=== PATIENT | female | born 1940 | race Caucasian/White ===

== ENCOUNTER → 2021-04-09 | Outpatient (CLI) | payer OTHER ==
[~2021-04-09] MED LIST: AMARYL 2MG TABLE2 MG PO; AMLOD-VALSA-HC1 EACH PO; ASPIRIN81 MG PO; CALCIUM600 MG PO; CO Q-10100 MG PO; GLUCOPHAGE 500500 MG PO; GLUCOSAMINE1000 MG PO; ICAPS MV TABLE1 EACH PO; LANTUS100 UNIT/1 SQ; LOVASTATIN10 MG PO; MAGNESIUM27 MG PO; MONTELUKAST SOD10 MG PO; NAPROXEN 375 M375 MG PO; TRICOR 145 MG145 MG PO; VITAMIN D 11000 UNIT PO; ZETIA 10 MG TAB10 MG PO
== END ==
LOC: KOH-I 10:00
DX: R09.1 Pleurisy (principal); R91.8 Other nonspecific abnormal finding of lung field
CPT/HCPCS: 71250

== ENCOUNTER 2021-05-05 08:56 | Inpatient (IN) | payer OTHER ==
[~2021-05-05] VITALS: Ht 175.3 cm; Wt 83.5 kg
[2021-05-05 09:33] LABS: HEMOGLOBIN 13.4 gm/dl (12.3-15.3); RED BLOOD COUNT 4.39 M/UL (4.00-5.10)
[2021-05-05 09:58] LABS: BUN/CREATININE RATIO 27 (0-10)
[2021-05-05] MEDS ORDERED: ROXICODONE TAB 55 MG PO ×2 (12:51→13:01)
[2021-05-05] MEDS ORDERED: LOSARTAN POTASS50 MG PO (17:26)
[2021-05-05] MEDS ORDERED: CYCLOBENZAPRINE10 MG PO (17:26)
[2021-05-05] MEDS ORDERED: PIOGLITAZONE HC30 MG PO (17:27)
[2021-05-05] MEDS ORDERED: CRESTOR20 MG PO (17:27)
[2021-05-05] MEDS ORDERED: OXYBUTYNIN CHLOR5 MG PO (17:27)
[2021-05-05] MEDS ORDERED: PROTONIX40 MG PO (17:28)
[2021-05-05] MEDS ORDERED: LOMOTIL 2.5-0.1 EACH PO (17:30)
[2021-05-05] MEDS ORDERED: TYLENOL EXTRA500 MG PO (17:31)
[2021-05-05] MEDS ORDERED: IBU800 MG PO (17:32)
[2021-05-06 04:20] LABS: RED BLOOD COUNT 4.27 M/UL (4.00-5.10); WHITE BLOOD COUNT 9.5 K/UL (4.5-11.0)
[2021-05-06 04:29] LABS: BUN/CREATININE RATIO 23 (0-10)
[2021-05-07 08:32] LABS: HEMOGLOBIN 12.9 gm/dl (12.3-15.3); RED BLOOD COUNT 4.22 M/UL (4.00-5.10)
[2021-05-07 09:04] LABS: BUN/CREATININE RATIO 29 (0-10)
--- NOTE | 2021-05-07 11:09 | NUR ---
VERIFIED ATIVAN ORDER WITH VIA PHONE. SHE ALSO STATES THAT IT IS OKAY FOR PATIENT TO COME OFF OF TELEMETRY LONG ENOUGH FOR MRI. SON ACCOMPANIED PATIENT TO MRI.
--- NOTE | 2021-05-07 13:59 | NUR ---
RECEIVED A STRIP FROM TELEMETRY THAT SHOWED PATIENT HAD A 17 BEAT RUN OF SVT. PRAOVIDER AWARE. PATIENT STABLE. NEW MEDICATION ORDERS GIVEN.
[2021-05-08 04:25] LABS: HEMOGLOBIN 13.1 gm/dl (12.3-15.3); RED BLOOD COUNT 4.28 M/UL (4.00-5.10)
[2021-05-08 04:30] LABS: WHITE BLOOD COUNT 12.4 K/UL (4.5-11.0)
[2021-05-08 04:47] LABS: BUN/CREATININE RATIO 32 (0-10)
[2021-05-09 06:04] LABS: HEMOGLOBIN 12.9 gm/dl (12.3-15.3); RED BLOOD COUNT 4.23 M/UL (4.00-5.10); WHITE BLOOD COUNT 12.6 K/UL (4.5-11.0)
[2021-05-09 06:25] LABS: BUN/CREATININE RATIO 35 (0-10)
--- NOTE | 2021-05-09 16:00 | NUR ---
PATIENT RETURNED FROM PACU AT THIS TIME S/P KYPHOPLASTY. BAND AID'S IN PLACE, CLEAN, DRY, AND IN TACT. PATIENT IS RESTING QUIETLY WITH EYES CLOSED, EASILY AWAKENS TO VERBAL STIMULI. VITAL SIGNS WNL. CALL LIGHT IN EASY REACH. SURGERY VITALS STARTED PER PROTOCOL. WILL CONTINUE TO MONITOR.
[2021-05-10 06:57] LABS: HEMOGLOBIN 12.2 gm/dl (12.3-15.3); RED BLOOD COUNT 4.09 M/UL (4.00-5.10); WHITE BLOOD COUNT 12.5 K/UL (4.5-11.0)
[2021-05-10 07:15] LABS: BUN/CREATININE RATIO 40 (0-10)
[2021-05-10] MEDS ORDERED: FERROUS SULFAT325 M2 PO (14:42)
[2021-05-11 07:05] LABS: RED BLOOD COUNT 3.95 M/UL (4.00-5.10); WHITE BLOOD COUNT 11.3 K/UL (4.5-11.0)
[2021-05-11 07:35] LABS: BUN/CREATININE RATIO 40 (0-10)
[2021-05-12 05:10] LABS: HEMOGLOBIN 12.2 gm/dl (12.3-15.3); RED BLOOD COUNT 4.03 M/UL (4.00-5.10); WHITE BLOOD COUNT 10.6 K/UL (4.5-11.0)
[2021-05-12 05:55] LABS: BUN/CREATININE RATIO 39 (0-10)
[2021-05-13 06:57] LABS: HEMOGLOBIN 11.9 gm/dl (12.3-15.3); RED BLOOD COUNT 4.04 M/UL (4.00-5.10); WHITE BLOOD COUNT 12.9 K/UL (4.5-11.0)
[2021-05-13 07:22] LABS: BUN/CREATININE RATIO 27 (0-10)
[2021-05-14 05:51] LABS: HEMOGLOBIN 12.2 gm/dl (12.3-15.3); RED BLOOD COUNT 4.15 M/UL (4.00-5.10); WHITE BLOOD COUNT 12.9 K/UL (4.5-11.0)
[2021-05-14 06:28] LABS: BUN/CREATININE RATIO 28 (0-10)
[2021-05-15 06:31] LABS: HEMOGLOBIN 12.4 gm/dl (12.3-15.3); RED BLOOD COUNT 4.13 M/UL (4.00-5.10); WHITE BLOOD COUNT 12.7 K/UL (4.5-11.0)
[2021-05-15 06:53] LABS: BUN/CREATININE RATIO 23 (0-10)
--- NOTE | 2021-05-15 12:57 | NUR ---
CALLED REPORT TO [facility] AT 1258 TO Maribel DE LA CRUZ RN.
== END 2021-05-15 12:47 | disposition home health service (06) | DRG 516 ==
LOC: ER1 08:56 → MED SURG 4 13:20 → CDU 13:20 → MED SURG 4 05-06 14:19
PROVIDERS: Emergency Medicine; Internal Medicine; Orthopaedic Surgery; Physician Assistant; ADMIT Internal Medicine
PROC: 0PU43JZ Supplement Thoracic Vertebra with Synthetic Substitute, Percutaneous Approach (ICD-10-PCS; 2021-05-09)
PROC: 0PS43ZZ Reposition Thoracic Vertebra, Percutaneous Approach (ICD-10-PCS; principal; 2021-05-09 20:00)
DX: M80.88XA Other osteoporosis with current pathological fracture, vertebra(e), initial encounter for fracture (principal); I47.1 Supraventricular tachycardia; E11.9 Type 2 diabetes mellitus without complications; Z20.822 Contact with and (suspected) exposure to COVID-19; M62.830 Muscle spasm of back; M51.36 Other intervertebral disc degeneration, lumbar region; I48.0 Paroxysmal atrial fibrillation; I10 Essential (primary) hypertension; E78.5 Hyperlipidemia, unspecified; K59.00 Constipation, unspecified; Z96.662 Presence of left artificial ankle joint; D50.9 Iron deficiency anemia, unspecified; Z85.3 Personal history of malignant neoplasm of breast; Z90.89 Acquired absence of other organs; Z90.12 Acquired absence of left breast and nipple; Z98.890 Other specified postprocedural states; Z92.89 Personal history of other medical treatment; Z83.3 Family history of diabetes mellitus; Z79.4 Long term (current) use of insulin; Z91.81 History of falling
CPT/HCPCS: 36415; 72128; 72131; 72146; 80048; 80053; 81001; 82962; 83036; 83540; 83550; 83690; 83735; 85025; 85027; 85610; 86850; 86900; 86901; 87086; 93005; 96374; 96375; 97116; 97116-GP-CQ; 97162; 97530; 99285; G0378; J0690; J1100; J1170; J2060; J2270; J2370; J2405; J2704; J3010; J7120; Q9967; U0002

== ENCOUNTER → 2021-08-01 | Outpatient (CLI) | payer MEDICARE ==
[~2021-08-01] MED LIST changes: +CRESTOR20 MG PO; +CYCLOBENZAPRINE10 MG PO; +FERROUS SULFAT325 M2 PO; +IBU800 MG PO; +LOMOTIL 2.5-0.1 EACH PO; +LOSARTAN POTASS50 MG PO; +OXYBUTYNIN CHLOR5 MG PO; +PIOGLITAZONE HC30 MG PO; +PROTONIX40 MG PO; +ROXICODONE TAB 55 MG PO; +TYLENOL EXTRA500 MG PO
== END ==
LOC: KOH-I 13:45
DX: R22.42 Localized swelling, mass and lump, left lower limb (principal)
CPT/HCPCS: 93971